=== PATIENT | male | born 1985 | race African-American/Black ===

== ENCOUNTER 2024-05-24 09:06 | Emergency (ER) | payer SELFPAY ==
[2024-05-24 09:08] VITALS: BP 116/73; PULSE 75; RESP 14; TEMP 37; O2SAT 98; BMI 23.0
--- NOTE | 2024-05-24 09:37 | ED_ITS ---
HPI - General Adult General Chief complaint: Upper Respiratory Symptoms Stated complaint: Sore throat 2 days Time Seen by Provider: 05/24/24 09:37 Source: patient Mode of arrival: ambulatory Limitations: no limitations History of Present Illness ED Provider: jacinto MANNING narrative: Patient is a 38-year-old male presenting to the emergency department with complaint of sore throat for the past few days. Denies any ear pain, congestion, cough. Pain increases with swallowing. Complains of subjective fever and headache. Took Tylenol prior to arrival with little relief. complaint: sore throat Onset (ago): day(s) Related Data Allergies Allergy/AdvReac Type Severity Reaction Status Date / Time No Known Allergies Allergy Verified 05/24/24 09:18 Review of Systems Review of Systems: As per HPI Yes all other systems are reviewed and are negative Constitutional: Constitutional: Reports as per HPI [facility] Social History Social History Advance Directives: No Advance Directives Information Provided: Yes Do you have a plan to hurt others: No Plan Physical Exam ED Vital Signs: Vital Signs - 24 hr 05/24/24 09:08 Temperature 98.6 F Pulse Rate 75 Respiratory Rate 14 Blood Pressure 116/73 Pulse Oximetry 98 Oxygen Delivery Method Room Air BMI result Body Mass Index 23.0 Vital signs have been reviewed and appear to be correct. Blood pressure normal. Heart rate normal. Respiratory rate normal. Temperature normal. Oxygen saturation normal. Const General: cooperative, healthy appearing and no acute distress Orientation/consciousness: oriented to person, oriented to place, oriented to time and patient oriented x3 Limitations: no limitations HENMT Head: Yes normocephalic and Yes atraumatic Ears: external ears normal, TM's normal bilaterally and EAC's normal General nose exam: Normal external nose present Face and sinus: Yes face symmetric Mouth: oropharynx normal and moist mucous membranes Throat: Yes uvula midline, No peritonsillar mass, No uvular edema and Yes co bblestoning Eyes Pupils: Equal, round and reactive pupils present Neck Neck: Yes normal visual inspection, Yes no lymphadenopathy and Yes supple Resp Effort & Inspection: normal respiratory effort and able to speak in complete sentences Auscultation: clear to auscultation bilaterally Cardio Rate: regular rate Rhythm: regular rhythm Heart sounds: S1 normal heart sound present and S2 normal heart sound present GI Palpation (GI): Soft to palpation and nontender Auscultation: normoactive bowel sounds General: Yes no CVA tenderness Back/Spine/Pelvis Back: no CVA tenderness Skin General skin exam: elasticity normal and turgor normal Neuro General: oriented to person, oriented to place, oriented to time, patient oriented x3, moves all extremities, no focal motor deficits and CN's II-XI intact bilaterally Cranial nerves: Yes Equal, round and reactive pupils present Cognition (Neuro): normal cognition Extrem General: Yes full ROM, Yes no pedal edema and Yes no calf tenderness Psych Mental Status: mental status grossly normal Affect: normal affect Thought process: Normal thought process present Medical Decision Making Medical Decision Making [facility] Narrative: Patient is a 38-year-old male presenting to the emergency department with complaint of sore throat for the past few days. On exam patient is awake, A+Ox3, VS WNL, afebrile, normal neurological exam without focal deficits, physical exam findings as above. Given reported symptoms and physical exam findings, initial differential includes viral versus strep pharyngitis, COVID, flu, other viral illness. Strep and viral swabs negative, likely viral pharyngitis, no evidence of [employer]/RPA. Treated with dexamethasone in the ED. Return precautions discussed at bedside. Patient verbalized understanding of and agreement with plan. Telephone Sentiment manager application was utilized for all interactions, assessments, and discussions. Differential Diagnosis Differential Diagnoses: The differential diagnosis associated with the presentation includes As per [facility] Lab Data [facility] Lab Attestation statement: I reviewed the patient's lab results. As per [facility] Labs: Lab Results 05/24/24 Range/Units 09:24 Influenza Type A (PCR) NEGATIVE (Negative) Influenza Type B (PCR) NEGATIVE (Negative) RSV RNA Qual (PCR) NEGATIVE (Negative) SARS-CoV-2 RNA (RT-PCR) NEGATIVE (Negative) S. pyogenes GrpA WILLIAMS Negative (Negative) External Record Review External record reviewed: Inpatient record, Office record and Outpatient record Prescription Management I considered prescription management with: Other Discharge Plan Discharge Clinical Impression: Pharyngitis Patient Disposition: Home, Self-Care Instructions: Pharyngitis (ED) Additional Instructions: You were evaluated in the emergency department today for a sore throat. Your COVID, flu, and strep swabs were all negative. Your symptoms are likely related to a viral infection which will resolve on its own with time and rest. You were treated in the ED with a steriod which will decrease inflammation. Be sure to drink adequate fluids. You can use Tylenol and ibuprofen per package directions as needed for discomfort. You can also gargle with warm salt water several times daily. Follow-up with your primary care provider this week. Return to the emergency department if you develop difficulty swallowing, worsening pain, shortness of breath, are unable to swallow your saliva, or any other concerning symptoms. Print Language: Antonio Rdz
[2024-05-24 10:26] LABS: IDNOW Serial# 08D9AD1C; Strep A Nucleic Acid Negative (Negative)
[2024-05-24 10:28] LABS: Influenza A PCR NEGATIVE (Negative); Influenza B PCR NEGATIVE (Negative); Resp Syncy Virus RNA Qual PCR NEGATIVE (Negative); SARS COV2 PCR INHOUSE NEGATIVE (Negative)
[2024-05-24] MEDS: dexAMETHasone 2 MG TABLET 10 MG PO (10:34)
[2024-05-24 10:42] VITALS: BP 116/73; PULSE 75; RESP 14; TEMP 37; O2SAT 98
== END 2024-05-24 10:45 | disposition home or self-care (01) ==
PROVIDERS: Physician Assistant Medical; Emergency Provider Emergency Medicine
DX: J02.9 Acute pharyngitis, unspecified (principal); R51.9 Headache, unspecified; R50.9 Fever, unspecified; Z03.818 Encounter for observation for suspected exposure to other biological agents ruled out
CPT/HCPCS: 0241U; 87651; 99282; 99283; J8540

== ENCOUNTER 2024-05-30 08:21 | Emergency (ER) | payer SELFPAY ==
--- NOTE | ~2024-05-30 | XR_ITS ---
EXAMINATION: XR CHEST CLINICAL INFORMATION: Cough COMPARISON: None available. TECHNIQUE: 2 views of the chest were obtained. FINDINGS: Cardiac silhouette is normal in size. The lungs are adequately aerated. There is mild prominence of the central pulmonary vasculature. Subtle patchy opacity suspected particularly within the left mid lung. No pleural effusion. No pneumothorax. No acute osseous abnormality. XR/XR chest 2V IMPRESSION: Subtle patchy opacities suspected particularly within the left midlung. This is a nonspecific finding and may be secondary to attenuation artifact, however, with provided history a viral infiltrate must also be suspected. Unfortunately, there is no prior imaging available for comparison purposes. Clinical correlation recommended. Follow-up imaging may be warranted. Electronically signed by: Oleg Mathews MD 05/30/2024 09:24 AM EDT
[2024-05-30 08:29] VITALS: BP 122/70; PULSE 86; RESP 18; TEMP 37; O2SAT 97; BMI 24.9
--- NOTE | 2024-05-30 08:54 | ED_ITS ---
HPI - General Adult General Chief complaint: Upper Respiratory Symptoms Stated complaint: sore throat Time Seen by Provider: 05/30/24 08:53 Source: patient and oral surgery physician (all interactions with this patient were facilitated with an [facility] approved [place] [employer] oral surgery physician) Mode of arrival: ambulatory Limitations: language barrier (all interactions with this patient were facilitated with an [facility] approved Citizen [place] creole oral surgery physician) History of Present Illness ED Provider: Sonal Guallpa PA-C HPI narrative: Patient is a 38 year old assigned male at with no reported medical history presenting to the emergency department today with a cough and sore throat. Patient states that over the last 8 days he has had a sore throat and a cough. Patient denies any dizziness, lightheadedness, abdominal pain, nausea, vomiting, fever, blurry vision, double vision, loss of vision, chest pain, difficulty breathing, shortness of breath, back pain, night sweats, pain with urination, increased urinary frequency, increased urinary urgency, blood in his urine or stool, syncope or a near syncopal episode, recent trauma or falls, bowel incontinence, bladder incontinence, or any other complaints at this time. Onset (ago): day(s) (8) Relieving factors: none Exacerbating factors: none Associated symptoms: cough and fever/chills Treatments prior to arrival: none Related Data Previous Rx's ?Medication ?Instructions ?Recorded amoxicillin 875 mg-potassium 1 tab PO BID 10 days #20 tabs 05/30/24 clavulanate 125 mg tablet doxycycline hyclate 100 mg tablet 100 mg PO BID 7 days #14 tabs 05/30/24 Allergies Allergy/AdvReac Type Severity Reaction Status Date / Time No Known Allergies Allergy Verified 05/30/24 08:31 Review of Systems Constitutional: Constitutional: Reports no additional constitutional complaints, Reports chills, Denies fever(s) and Denies night sweats Eyes: Eyes: Reports no additional eye complaints, Denies blurry vision, Denies change in vision, Denies diplopia, Denies eye discharge, Denies loss of vision and Denies eye pain ENT: Denies dizziness and Reports sore throat Cardiovascular: Cardiovascular: Reports no additional cardiovascular complaints, Denies chest pain, Denies lightheadedness, Denies Loss of Consciousness and Denies dyspnea Respiratory: Respiratory: Reports no additional respiratory complaints, Reports cough and Denies dyspnea Gastrointestinal: Gastrointestinal: Reports no additional gastrointestinal complaints, Denies abdominal pain, Denies melena, Denies hematochezia, Denies change in bowel habits and Denies change in stool character Genitourinary: Genitourinary: Reports no additional male genitourinary complaints, Denies hematuria, Denies oliguria, Denies difficulty urinating, Denies dysuria, Denies urinary frequency, Denies urinary hesitancy, Denies urinary incontinence and Denies urinary urgency Musculoskeletal: Musculoskeletal: Reports no additional musculoskeletal complaints, Denies numbness and Denies tingling Neurologic: Denies dizziness, Denies loss of vision, Denies numbness and Denies tingling Psychiatric: Psychiatric: Reports no additional psychiatric complaints Endocrine: Endocrine: Reports no additional endocrine complaints Hematologic/Lymphatic: Hematologic/Lymphatic: Reports no additional hematologic/lymphatic complaints Allergic/Immunologic: Allergic/Immunologic: Reports no additional allergic/immunologic complaints PMFSH Past Medical History Attestation statement: The following information was validated with the patient. Source: old records reviewed and nursing notes reviewed Social History Social History Advance Directives: No Advance Directives Information Provided: No Physical Exam ED Vital Signs: Vital Signs - 24 hr 05/30/24 08:29 05/30/24 10:14 Temperature 98.6 F 98.6 F Pulse Rate 86 86 Respiratory Rate 18 18 Blood Pressure 122/70 122/70 Pulse Oximetry 97 97 Oxygen Delivery Method Room Air Room Air BMI result Body Mass Index 24.9 Const General: cooperative, no acute distress, alert and awake Nutritional Appearance: well nourished Orientation/consciousness: patient oriented x3 Limitations: no limitations [facility] Head: Yes normal to inspection and Yes atraumatic Ears: hearing grossly normal bilaterally and external ears normal General nose exam: Normal external nose present, no nasal discharge noted and no epistaxis Face and sinus: Yes normal facial exam, No abrasion and No laceration Mouth: Normal oral and palatal mucosa present, no drooling and no muffled voice Eyes General: appearance normal, both eyes and all related structures Periorbital: periorbital findings normal Eyelids: Yes eyelids normal Conjunctivae: conjunctivae normal Pupils: Equal, round and reactive pupils present EOM: EOMs intact bilaterally Neck Neck: Yes normal visual inspection, Yes full ROM and Yes no lymphadenopathy Chest Chest palpation & inspection: normal inspection of the chest Resp Effort & Inspection: normal respiratory effort and able to speak in complete sentences GI Inspection: Yes normal to inspection Neuro General: patient oriented x3 and moves all extremities Cranial nerves: Yes Equal, round and reactive pupils present Cognition (Neuro): normal cognition Extrem General: Yes normal to inspection, Yes full ROM and Yes capillary refill normal Psych Appearance: grossly normal Mental Status: mental status grossly normal Affect: normal affect Attitude: cooperative Thought process: Normal thought process present Thought content: Normal thought content present Insight: Good insight present (Psych) Medical Decision Making Medical Decision Making [facility] Narrative: Patient is a 38 year old assigned male at with no reported medical history presenting to the emergency department today with a cough, chills, and sore throat. Patient's physical exam was unremarkable. Patient's chest x-ray showed possible PNA, given the patient's clinical presentation, will treat. Patient's COVID-19, influenza, RSV, and strep pharyngitis swabs were negative. I explained my physical exam findings as well as all test results to the patient. I answered all questions asked by the patient. I stressed the importance of the patient taking his medication as directed (either prescribed or as the over the counter packaging recommends). I stressed the importance of the patient following up with his primary care provider. I stressed the importance of the patient returning to the emergency department immediately if his symptoms were to worsen or if he were to develop any dizziness, shortness of breath, difficulty breathing, chest pain, blurry vision, loss of vision, nausea, vomiting, abdominal pain, fever, chills, back pain, or any other complaints. Patient verbalized agreement and understanding with this treatment plan and discharge. Differential Diagnosis Differential Diagnoses: The differential diagnosis associated with the presentation includes Pneumonia COVID-19 URI Pharyngitis Strep pharyngitis Influenza RSV Admission/Observation Consideration of admission/observation: Escalation of care including admission/observation considered Patient would have been admitted to the hospital had his work up had any findings where hospital admission was appropriate and his clinical presentation warranted hospital admission. Lab Data [facility] Lab Attestation statement: I reviewed the patient's lab results. My interpretation of these studies and their corresponding values is that they are grossly normal. Labs: Lab Results 05/30/24 Range/Units 09:00 Influenza Type A (PCR) NEGATIVE (Negative) Influenza Type B (PCR) NEGATIVE (Negative) RSV RNA Qual (PCR) NEGATIVE (Negative) SARS-CoV-2 RNA (RT-PCR) NEGATIVE (Negative) S. pyogenes GrpA WILLIAMS Negative (Negative) Independent Interpretation I performed an independent interpretation of an: Plain X-Ray Interpretation: My interpretation is in agreement with the radiologist's impression of this imaging study. EXAMINATION: XR CHEST CLINICAL INFORMATION: Cough COMPARISON: None available. TECHNIQUE: 2 views of the chest were obtained. FINDINGS: Cardiac silhouette is normal in size. The lungs are adequately aerated. There is mild prominence of the central pulmonary vasculature. Subtle patchy opacity suspected particularly within the left mid lung. No pleural effusion. No pneumothorax. No acute osseous abnormality. XR/XR chest 2V IMPRESSION: Subtle patchy opacities suspected particularly within the left midlung. This is a nonspecific finding and may be secondary to attenuation artifact, however, with provided history a viral infiltrate must also be suspected. Unfortunately, there is no prior imaging available for comparison purposes. Clinical correlation recommended. Follow-up imaging may be warranted. Electronically signed by: Oleg Mathews MD 05/30/2024 09:24 AM EDT Dictated By: Oleg Mathews MD Signed By: Electronically signed by Oleg Mathews MD 05/30/24923 Radiology Impression Discussion of test interpretation with radiology: I have reviewed the radiologist's reading. Prescription Management I considered prescription management with: Antibiotic (patient prescribed antibiotics for PNA) Discharge Plan Discharge Clinical Impression: Pharyngitis, Pneumonia Patient Disposition: Home, Self-Care Instructions: Pharyngitis (ED), Community Acquired Pneumonia (DC) Additional Instructions: Take your antibiotics as prescribed. Follow up with your primary care provider. Return to the emergency department immediately if your symptoms worsen or if you develop any dizziness, shortness of breath, difficulty breathing, chest pain, blurry vision, loss of vision, nausea, vomiting, abdominal pain, fever, chills, back pain, or any other complaints. Pran antibyotik ou anu yo preskri. Swiv ak founis? swen prensipal ou a. Retounen siobhan luke imedyatman si sent?m ou yo seamus pi mal oswa si ou devlope nenp?t v?tij, souf kout, difikilte vanna respire, doul? nan pwatrin, vizyon twoub, p?t vizyon, k? plen, vomisman, doul? nan vant, lafy?v, frison, doul? nan do, oswa nenp?t l?t plent. Prescriptions: New doxycycline hyclate 100 mg tablet 100 mg PO BID 7 Days Qty: 14 0RF amoxicillin-pot clavulanate 875-125 mg tablet 1 tab PO BID 10 Days Qty: 20 0RF Referrals: [facility] Family Medicine [Provider Group] (Call to establish and follow up with a primary care provider. If you already have a primary care provider, please follow up with them. Rele vanna etabli epi swiv ak yon founis? swen prensipal. Si w saba gen yon founis? swen prensipal, tanpri swiv li.) [facility] Primary Care, [place] [Provider Group] (Call to establish and follow up with a primary care provider. If you already have a primary care provider, please follow up with them. Rele vanna etabli epi swiv ak yon founis? swen prensipal. Si w saba gen yon founis? swen prensipal, tanpri swiv li.) [facility] Primary [facility],[place] [Provider Group] (Call to establish and follow up with a primary care provider. If you already have a primary care provider, please follow up with them. Rele vanna etabli epi swiv ak yon founis? swen prensipal. Si w saba gen yon founis? swen prensipal, tanpri swiv li.) Stand Alone Forms: Work/School Release Interventions: ED Discharge Assessment Last Done: 05/30/24 10:14 Discharge Date/Time: 05/30/24 10:14 Print Language: Antonio Rdz
[2024-05-30 09:14] LABS: IDNOW Serial# 08D9AD1C; Strep A Nucleic Acid Negative (Negative)
[2024-05-30 09:44] LABS: Influenza A PCR NEGATIVE (Negative); Influenza B PCR NEGATIVE (Negative); Resp Syncy Virus RNA Qual PCR NEGATIVE (Negative); SARS COV2 PCR INHOUSE NEGATIVE (Negative)
[2024-05-30 10:14] VITALS: BP 122/70; PULSE 86; RESP 18; TEMP 37; O2SAT 97
== END 2024-05-30 10:14 | disposition home or self-care (01) ==
PROVIDERS: Physician Assistant Medical; Emergency Provider Emergency Medicine
DX: J18.9 Pneumonia, unspecified organism (principal); J02.9 Acute pharyngitis, unspecified; R50.9 Fever, unspecified; R05.9 Cough, unspecified; Z03.818 Encounter for observation for suspected exposure to other biological agents ruled out
CPT/HCPCS: 0241U; 71046; 87651; 99282; 99283